=== PATIENT | male | born 1995 | race Caucasian/White ===

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

== ENCOUNTER 2017-06-16 08:39 | Emergency (ER) | payer OTHER ==
[~2017-06-16] VITALS: Ht 188 cm; Wt 72.6 kg
[2017-06-16] MEDS ORDERED: REGLAN10 MG PO (11:26)
[2017-06-16] MEDS ORDERED: ZOFRAN8 MG PO (11:26)
== END 2017-06-16 11:39 | disposition home or self-care (01) ==
LOC: ED 08:39
DX: K52.9 Noninfective gastroenteritis and colitis, unspecified (principal); F17.200 Nicotine dependence, unspecified, uncomplicated; Z88.1 Allergy status to other antibiotic agents
CPT/HCPCS: 80053; 81001; 83690; 85025; 96374; 99283; J2765; J7030

== ENCOUNTER 2017-07-08 10:23 | Emergency (ER) | payer OTHER ==
[~2017-07-08] VITALS: Ht 188 cm; Wt 72.6 kg
[~2017-07-08 10:23] MED LIST changes: +REGLAN10 MG PO; +ZOFRAN8 MG PO
[2017-07-08] MEDS ORDERED: ONDANSETRON ODT8 MG PO (11:03)
== END 2017-07-08 11:40 | disposition home or self-care (01) ==
LOC: ED 10:23
DX: G43.A0 Cyclical vomiting, in migraine, not intractable (principal); F17.200 Nicotine dependence, unspecified, uncomplicated; Z88.0 Allergy status to penicillin
CPT/HCPCS: 96372; 96374; 99283; J2405; J3486; J7030

== ENCOUNTER 2017-08-10 09:57 | Emergency (ER) | payer OTHER ==
[~2017-08-10] VITALS: Ht 188 cm; Wt 72.6 kg
[~2017-08-10 09:57] MED LIST changes: +ONDANSETRON ODT8 MG PO
[2017-08-10] MEDS ORDERED: OMEPRAZOLE20 MG PO (11:31)
== END 2017-08-10 11:54 | disposition home or self-care (01) ==
LOC: ED 09:57
DX: R11.2 Nausea with vomiting, unspecified (principal); K31.89 Other diseases of stomach and duodenum; F17.200 Nicotine dependence, unspecified, uncomplicated; Z88.0 Allergy status to penicillin; Z79.899 Other long term (current) drug therapy
CPT/HCPCS: 80053; 81001; 83690; 85025; 96361; 96374; 96375; 99283; J2405; J7030

== ENCOUNTER 2017-09-08 18:41 | Emergency (ER) | payer OTHER ==
[~2017-09-08] VITALS: Ht 188 cm; Wt 73.5 kg
[~2017-09-08 18:41] MED LIST changes: +OMEPRAZOLE20 MG PO
[2017-09-08] MEDS ORDERED: VITAMIN D250000 UNIT PO (18:57)
== END 2017-09-08 19:48 | disposition home or self-care (01) ==
LOC: ED 18:41
DX: S60.022A Contusion of left index finger without damage to nail, initial encounter (principal); W22.8XXA Striking against or struck by other objects, initial encounter; F17.200 Nicotine dependence, unspecified, uncomplicated; Z88.0 Allergy status to penicillin; Z79.899 Other long term (current) drug therapy
CPT/HCPCS: 73140; 99283

== ENCOUNTER 2017-09-14 13:48 | Emergency (ER) | payer OTHER ==
[~2017-09-14] VITALS: Ht 188 cm; Wt 73.5 kg
[~2017-09-14 13:48] MED LIST changes: +VITAMIN D250000 UNIT PO
== END 2017-09-14 15:31 | disposition home or self-care (01) ==
LOC: ED 13:48
DX: S70.01XA Contusion of right hip, initial encounter (principal); F17.200 Nicotine dependence, unspecified, uncomplicated; Z88.0 Allergy status to penicillin; W08.XXXA Fall from other furniture, initial encounter; Y99.0 Civilian activity done for income or pay
CPT/HCPCS: 73502; 99283

== ENCOUNTER 2018-11-23 17:45 | Emergency (ER) | payer OTHER ==
[~2018-11-23] VITALS: Ht 188 cm; Wt 73.5 kg
--- OUTSIDE RECORDS SUMMARY | 2018-11-23 17:48 | XMS ---
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 - [facility] Care Guidelines CARE PROVIDERS AXEL SANTIAGO Family Medicine: Sports Medicine 09/11/2017-Current PHONE: Unknown [facility] Primary [facility] Current PHONE: [phone] Frank has no Care Guidelines for this patient. Care History Medical/Surgical 09/15/2017 [facility] discussed ED utilization with patient and discussed the importance of PCP follow up care. Care Recommendation: This patient has had 5 or more Emergency Department visits in the last 12 months.\T\nbsp; Patient requires education on the scope and purpose of the ED as an acute care provider not a Primary Care Provider and should not be utilized for chronic conditions.\T\ nbsp; If patient returns to ED please contact Community Health WorkerValencia at [phone]. These are guidelines and the provider should exercise clinical judgment when providing care. E.D. VISIT COUNT (12 MO.) 1 EMRE Ayala TOTAL 1 NOTE: Visits indicate total known visits. ED/UCC VISIT TRACKING (12 MO.) 11/23/2018 17:46 EMRE Estrella [place] TYPE: Emergency COMPLAINT: - VOMITING BLOOD INPATIENT VISIT TRACKING (12 MO.) No inpatient visits to display in this time frame [email or web address]
[2018-11-23] MEDS ORDERED: OMEPRAZOLE20 MG PO (20:16)
== END 2018-11-23 20:27 | disposition home or self-care (01) ==
LOC: ED 17:45
DX: R10.30 Lower abdominal pain, unspecified (principal); R11.10 Vomiting, unspecified; F17.200 Nicotine dependence, unspecified, uncomplicated; Z88.0 Allergy status to penicillin
CPT/HCPCS: 74177; 80053; 81001; 83690; 83735; 85025; 99284-25; C9113; J2270; J2405; J7030